=== PATIENT | male | born 1995 | race Caucasian/White ===

== ENCOUNTER 2023-01-28 12:00 | Emergency (ER) | payer OTHER, SELFPAY ==
--- NOTE | ~2023-01-28 | XR_ITS ---
EXAMINATION: XR chest 2V DATE: 01/28/2023 12:35 INDICATION: Left chest pain. TECHNIQUE: Frontal and lateral views of the chest were obtained. COMPARISON: None. FINDINGS: There is no pneumonia, pleural effusion, or pneumothorax. The heart size is normal. IMPRESSION: 1. No acute cardiopulmonary disease. Reviewed, dictated and finalized at location E.
--- NOTE | 2023-01-28 12:02 | ECG_ITS ---
Measurements Intervals [place] Rate: 77 P: 75 NM: 151 QRS: 51 QRSD: 100 T: 56 QT: 328 QTc: 372 Interpretive Statements SINUS RHYTHM INCOMPLETE RIGHT BUNDLE BRANCH BLOCK PEAKED T WAVES- CONSIDER HYPERKALEMIA BASELINE ARTIFACT- I, III, AVL ABNORMAL ECG NO PREVIOUS ECG AVAILABLE FOR COMPARISON Electronically Signed On 01-28-2023 12:31:04 CDT by Herman Whelan D.O.
[2023-01-28 12:08] VITALS: BP 140/96; PULSE 88; RESP 17; TEMP 36.6; O2SAT 100
[2023-01-28] MEDS: ASPIRIN 81 MG CHEWABLE TABLET 324 MG PO (12:24)
[2023-01-28 12:29] LABS: Basophils Percent Auto 0.5 % (0.2-1.2); Eosinophils Absolute Auto 0.1 K/mm3 (0-0.3); Hematocrit 44.9 % (42.0-52.0); Hemoglobin 15.1 g/dL (14.0-18.0); Immature Granulocyte Absolute 0.05 K/mm3 (0.00-0.031); Immature Granulocyte Percent A 0.9 % (0-0.5); Lymphocytes Absolute Auto 1.28 K/mm3 (0.9-3.2); Lymphocytes Percent Auto 22.1 % (18.3-44.2); Mean Corpuscular HGB Conc 33.6 g/dl (32-36); Mean Corpuscular Hemoglobin 31.9 pg (26-34); Mean Corpuscular Volume 94.7 fl (80-100); Mean Platelet Volume 10.1 fl (7.4-10.4); Monocytes Absolute Auto 0.6 K/mm3 (0.1-0.6); Neutrophils Absolute Auto 3.8 K/mm3 (1.3-6.7); Neutrophils Percent Auto 65.5 % (45.5-73.1); Platelet Count Result 224 k/mm3 (150-375); Red Blood Count 4.74 M/mm3 (4.6-6.20); Red Cell Distribution Width 11.7 % (11.5-14.5); White Blood Count 5.8 K/mm3 (4.5-10.0)
[2023-01-28 12:31] VITALS: BP 139/120
[2023-01-28 12:39] LABS: Prothrombin Time 13.2 Seconds (11.1-14.7)
[2023-01-28 12:40] LABS: Partial Thromboplastin Time 27.3 SECONDS (22.3-36.8)
[2023-01-28 12:45] LABS: Alanine Aminotransferase 59 U/L (6-50); Albumin Level 5.1 g/dL (3.5-5.1); Alkaline Phosphatase 74 U/L (38-126); Anion Gap 8 mmol/L (8-16); Aspartate Amino Transferase 34 U/L (17-59); Bilirubin,Total 0.5 mg/dL (0.2-1.3); Blood Urea Nitrogen 11 mg/dL (9-20); Calcium 9.2 mg/dL (8.4-10.2); Carbon Dioxide 29 mmol/L (22-30); Chloride 102 mmol/L (98-107); Estimated CRCL calculation 139 ml/min; Estimated Glomerular Filt Rate > 60; Glucose 97 mg/dL (65-110); Lipase 143 U/L (23-300); Potassium 4.3 mmol/L (3.4-5.0); Sodium 139 mmol/L (137-145)
[2023-01-28 12:56] LABS: Troponin I < 0.012 ng/mL (0.000-0.034)
[2023-01-28 13:03] VITALS: PULSE 77; RESP 22; O2SAT 100
--- NOTE | 2023-01-28 13:35 | ED.CHESTPAIN ---
HPI - Chest Pain General Chief Complaint: Chest Pain Stated Complaint: chest pain Time Seen by Provider: 01/28/23 12:41 History of Present Illness HPI narrative: Patient is a 27-year-old male presenting with chest pain. Patient states that this morning he had a headache so he took some ibuprofen. Shortly after this he developed left-sided chest pain that goes into his arm. He denies any alleviating or exacerbating factors. No exertional or pleuritic component. No shortness of breath, lightheadedness, palpitations, nausea or vomiting, back pain, abdominal pain, leg swelling, numbness or weakness. No fevers or chills, nasal congestion, sore throat, cough. Related Data Allergies Allergy/AdvReac Type Severity Reaction Status Date / Time No Known Allergies Allergy Verified 01/28/23 12:23 Review of Systems Review of Systems: All systems reviewed & are unremarkable except as noted in HPI and below Exam Narrative: GENERAL: Well-appearing and in no acute distress. HEAD: Normocephalic, atraumatic. EYES: PERRLA and EOMI. ENT: Grossly unremarkable NECK: Supple. CHEST: Clear to auscultation. No respiratory distress. No chest wall tenderness HEART: Regular rate and rhythm. ABDOMEN: Soft, nontender, nondistended EXTREMITIES: Normal range of motion. No edema. SKIN: Warm, dry, no rash. NEURO: No focal deficits. Alert and oriented x3. PSYCH: Normal mood and affect. Course Vital Signs Vital signs: Vital Signs Temperature 97.9 F 01/28/23 12:08 Pulse Rate 88 01/28/23 12:08 Respiratory Rate 17 01/28/23 12:08 Blood Pressure 140/96 H 01/28/23 12:08 Pulse Oximetry 100 01/28/23 12:08 Oxygen Delivery Room Air 01/28/23 12:08 Temperature 97.9 F 01/28/23 12:08 Pulse Rate 77 01/28/23 13:03 Respiratory Rate 22 H 01/28/23 13:03 Blood Pressure 139/120 H 01/28/23 12:31 Pulse Oximetry 100 01/28/23 13:03 Oxygen Delivery Room Air 01/28/23 12:08 MDM - Chest Pain MDM Narrative Medical decision making narrative: Patient is a 27-year-old male presenting with chest pain. Vitals are stable. Exam is unremarkable. EKG per my interpretation shows normal sinus rhythm, incomplete right bundle, no ST elevations or depressions. No priors for comparison. Blood work is unremarkable. Troponin is undetectable. On reevaluation, the patient is resting comfortably. He is asking to go home which I think is reasonable. Advised PCP follow-up. Appropriate return precautions given. Patient voiced understanding and is agreeable with plan. Discharged in stable condition. Differential Diagnosis Differential diagnosis: Likely fracture of rib, pneumothorax, stable angina, atypical chest pain, costochondritis and chest pain Medical Records Data Attestation: I reviewed the patient's medical records. Lab Data Attestation: I reviewed the patient's lab results. 01/28/23 12:23 01/28/23 12:23 Labs: Lab Results 01/28/23 Range/Units 12:23 WBC 5.8 (4.5-10.0) K/mm3 RBC 4.74 (4.6-6.20) M/mm3 Hgb 15.1 (14.0-18.0) g/dL Hct 44.9 (42.0-52.0) % MCV 94.7 (80-100) fl MCH 31.9 (26-34) pg MCHC 33.6 (32-36) g/dl RDW 11.7 (11.5-14.5) % Plt Count 224 (150-375) k/mm3 MPV 10.1 (7.4-10.4) fl Immature Gran % (Auto) 0.9 H (0-0.5) % Neut % (Auto) 65.5 (45.5-73.1) % Lymph % (Auto) 22.1 (18.3-44.2) % [place] % (Auto) 10.0 H (2.6-8.5) % Eos % (Auto) 1.0 (0-4.4) % Baso % (Auto) 0.5 (0.2-1.2) % Lymph # (Auto) 1.28 (0.9-3.2) K/mm3 [place] # (Auto) 0.6 (0.1-0.6) K/mm3 Eos # (Auto) 0.1 (0-0.3) K/mm3 Baso # (Auto) 0.0 (0.0-0.1) K/mm3 Abs Immat Gran (auto) 0.05 H (0.00-0.031) K/mm3 Absolute Neuts (auto) 3.8 (1.3-6.7) K/mm3 Absolute Nucleated RBC 0.0 (0.0-0.012) K/mm3 Nucleated RBC % 0.0 (0.0-0.2) % PT 13.2 (11.1-14.7) Seconds INR 1.0 APTT 27.3 (22.3-36.8) SECONDS Sodium 139 (137-145) mmol/L Potassium 4.3 (3.4-5.0) mmol/L Chl
== END 2023-01-28 14:47 | disposition home or self-care (01) ==
PROVIDERS: Emergency Medicine; Emergency Provider Emergency Medicine
DX: R07.89 Other chest pain (principal); I45.10 Unspecified right bundle-branch block; R94.31 Abnormal electrocardiogram [ECG] [EKG]
CPT/HCPCS: 36415; 71046; 80053; 83690; 84484; 85025; 85610; 85730; 93005; 99284; A9270